=== PATIENT | female | born 1985 | race Caucasian/White ===

== ENCOUNTER 2022-11-07 10:40 | Outpatient (CLI) | payer OTHER | END 2022-11-07 11:00 | disposition home or self-care (01) | LOC: TOM 10:40 | PROVIDERS: ATTEND Psychiatry & Neurology Neurology | DX: G43.109 Migraine with aura, not intractable, without status migrainosus (principal) ==

== ENCOUNTER → 2023-03-22 | Outpatient (CLI) | payer OTHER | END | disposition home or self-care (01) | LOC: RAD 07:05 | PROVIDERS: ATTEND Psychiatry & Neurology Neurology | DX: M50.20 Other cervical disc displacement, unspecified cervical region (principal) ==

== ENCOUNTER 2024-07-05 06:45 | Outpatient (CLI) | payer OTHER | END 2024-07-05 14:34 | disposition home or self-care (01) | LOC: MRI 06:45 | PROVIDERS: ATTEND Physical Medicine & Rehabilitation | DX: M54.50 Low back pain, unspecified (principal) | CPT/HCPCS: 72148 ==

== ENCOUNTER 2025-05-28 07:15 | Outpatient (CLI) | payer OTHER | END 2025-05-28 08:17 | disposition home or self-care (01) | LOC: SONOGRAMA 07:15 | DX: E04.2 Nontoxic multinodular goiter (principal) ==